=== PATIENT | female | born 1960 | race Hispanic/Latino ===

== ENCOUNTER 2022-07-21 11:41 | Day surgery (SDC) | payer BC, OTHER ==
--- NOTE | 2022-07-18 14:51 | RAD REPORT ---
EXAM DESCRIPTION: RAD - Chest Pa And Lat (2 Views) - 07/18/2022 2:40 pm CLINICAL HISTORY: pre op for surgery Chest pain. COMPARISON: No comparisons FINDINGS: The lungs are clear. The heart is upper limit normal in size. No displaced fractures. IMPRESSION: No acute or concerning finding suspected.
[2022-07-18 15:05] LABS: Hematocrit 42.1 % (36.0-45.0); MCV 80.7 fL (80-100); RBC Red Blood Cell Count 5.22 M/uL (3.86-4.86)
[2022-07-18 15:06] LABS: Absolute Lymphocytes (CBC) 2.7 K/uL (0.7-4.9); Lymphocytes % 20.7 % (15.3-44.8); MPV 8.1 fL (7.6-11.3)
[2022-07-18 15:22] LABS: SARS-CoV-2 Antigen Rapid Res Positive (Negative)
[2022-07-18 15:36] LABS: ALT/SGPT 33 U/L (12-78); AST/SGOT 21 U/L (15-37); Albumin 3.8 g/dL (3.4-5.0); Alkaline Phosphatase 69 U/L (45-117); Amylase 72 U/L (25-115); BUN Blood Urea Nitrogen 20 mg/dL (7-18); Bicarbonate 28 mmol/L (21-32); Bilirubin Total 0.2 mg/dL (0.2-1.0); Glomerular Filtration Rate 49 ml/min (=/>90); Glucose Level 126 mg/dL (74-106); Lipase 118 U/L (73-393); Protein, Total 8.2 g/dL (6.4-8.2); Sodium Level 139 mmol/L (136-145)
[2022-07-18 15:43] LABS: Bilirubin Direct < 0.1 mg/dL (0-0.2)
[2022-07-21] MEDS ORDERED: NA CHLORIDE 0.9% 1,000 ML ONE (11:52)
[2022-07-21] MEDS ORDERED: CEFOXITIN SODIUM 1 GM/VIAL ONE (11:52)
[2022-07-21] MEDS ORDERED: MIDAZOLAM HCL 2 MG/2 ML INJ ONE (12:44)
[2022-07-21] MEDS ORDERED: LIDOCAINE 2% MPF 5 ML VIAL ONE (12:44)
[2022-07-21] MEDS ORDERED: FENTANYL CITR 100 MCG/2 ML ONE (12:44)
[2022-07-21] MEDS ORDERED: propofoL 200 MG/20 ML VIAL IV ONE (12:44)
[2022-07-21 12:45] LABS: SARS-CoV-2 Antigen Rapid Res Positive (Negative)
[2022-07-21] MEDS ORDERED: ROCURONIUM 50 MG/5 ML VIAL IV ONE (12:45)
[2022-07-21] MEDS ORDERED: ONDANSETRON 4 MG/2 ML VIAL ONE (12:45)
[2022-07-21] MEDS ORDERED: dexAMETHasone 4 MG/ML VIAL ONE (13:20)
[2022-07-21] MEDS ORDERED: Phenylephrine HCl 10 MG/ML 1 ML VIAL ONE (13:30)
[2022-07-21] MEDS ORDERED: NEOSTIGMINE 1 MG/ML -10 ML VIAL ONE (13:42)
[2022-07-21] MEDS ORDERED: GLYCOPYRROLATE 0.2 MG/ML SYR ONE (13:42)
[2022-07-21] MEDS ORDERED: KETOROLAC 30 MG/ML INJ ONE (13:42)
--- NOTE | 2022-07-21 14:13 | EKG ---
Test Date: 2022-07-18 Test Time: 14:27:04 Redrying Machine Operator: VIC MEASUREMENT RESULTS: Intervals: Rate: 75 ND: 190 QRSD: 102 QT: 388 QTc: 433 [place]: P: 23 ND: 190 QRS: -18 T: 24 INTERPRETIVE STATEMENTS: Sinus rhythm with occasional premature ventricular complexes Cannot rule out Anterior infarct, age undetermined Abnormal ECG No previous ECG available for comparison Electronically Signed On 07-21-22 14:10:09 CDT by Alexandru Knapp
[2022-07-21 14:23] VITALS: O2SAT 100
[2022-07-21 15:07] VITALS: BP 109/43; TEMP 97.3
[2022-07-21] MEDS ORDERED: CODEINE 30MG/APAP 300MG TAB ONE (15:10)
[2022-07-21] MEDS ORDERED: CODEINE 30MG/APAP 300MG TAB PO ONE (15:10)
== END 2022-07-21 15:23 | disposition home or self-care (01) ==
LOC: PRE 11:41 → OR 15:23
PROVIDERS: ATTEND Surgery
PROC: 0FT44ZZ Resection of Gallbladder, Percutaneous Endoscopic Approach (ICD-10-PCS; principal; 2022-07-21 12:30)
DX: K80.10 Calculus of gallbladder with chronic cholecystitis without obstruction (principal); U07.1 COVID-19; Z20.822 Contact with and (suspected) exposure to COVID-19; E11.9 Type 2 diabetes mellitus without complications; E03.9 Hypothyroidism, unspecified; E78.00 Pure hypercholesterolemia, unspecified
CPT/HCPCS: 93005; 85025; 80048; 36415 ×2; 82150; 82947; 80076; 88304; 83690; 71046; 87811 ×2; 47562; J2704; J1100; J2710; J2370; J2001; J2250; J3010; J7030; J0694; J2405